=== PATIENT | female | born 1970 | race Caucasian/White ===

== ENCOUNTER 2019-04-13 18:17 | Emergency (ER) | payer MEDICAID, OTHER ==
[~2019-04-13] VITALS: Ht 162.6 cm; Wt 65.0 kg
[2019-04-13 18:34] VITALS: BP 115/73
[2019-04-13] MEDS ORDERED: CYCL-1 PO (20:49)
[2019-04-13] MEDS ORDERED: cyclobenzaprine 10mg tablet PO ONE (20:50)
[2019-04-13] MEDS ORDERED: HYDROcodone/acetaminophen 10/325mg tab PO ONE (20:50)
== END 2019-04-13 21:14 | disposition home or self-care (01) ==
LOC: ER 18:18
DX: S16.1XXA Strain of muscle, fascia and tendon at neck level, initial encounter (principal); S39.012A Strain of muscle, fascia and tendon of lower back, initial encounter; G43.909 Migraine, unspecified, not intractable, without status migrainosus; F17.200 Nicotine dependence, unspecified, uncomplicated; Z88.6 Allergy status to analgesic agent; X58.XXXA Exposure to other specified factors, initial encounter; Y93.89 Activity, other specified; Y92.89 Other specified places as the place of occurrence of the external cause; Y99.8 Other external cause status
CPT/HCPCS: 99283